=== PATIENT | male | born 1955 | race Caucasian/White ===

== ENCOUNTER → 2016-10-30 | Outpatient (CLI) | payer BC ==
[~2016-10-30] MED LIST: E-Z PAQUE 60% w/v SUSP 355ML BOTTLE As Ordered ONE; E-Z-GAS II EFFERVESCENT PACKET (SODIUM BICARB./CITRIC ACID/SIMETHICONE) As Ordered ONE; E-Z-HD 98% w/w 340GM SUSP BTL As Ordered ONE; NEXI40CA PO; SUCR1TA PO
--- NOTE | 2016-10-30 15:54 | REP ---
UPPER GI, AIR CONTRAST: The procedure was performed under the direct supervision of Dr. Perera. The images were reviewed with Dr. Perera. The gyroscopic instrument mechanic film shows no organomegaly or pathological masses. The intestinal gas pattern is nonspecific. Liquid barium and gas-producing granules were given in the erect position as well as liquid barium in the prone oblique position in order to perform a double-contrast upper GI examination. The oral and pharyngeal stage of deglutition are unremarkable. During esophageal transport there are tertiary waves demonstrated. There is no esophagitis, stricture, mucosal ring, or hiatal hernia. There is to and fro motion in the upright position. Gastroesophageal reflux is not demonstrated on this examination. The stomach hines are normally outlined. The rugal folds are smooth and regular. There is no gastritis, neoplasm, or ulcer disease. The duodenal hines are normally outlined. The mucosal folds are smooth and regular. There is no duodenitis, pancreatitis, peptic ulcer disease, or neoplasm. The visualized portion of the proximal small bowel appears normal in course and caliber. IMPRESSION: There is esophageal dysmotility with to and from motion in the upright position. Otherwise, unremarkable double contrast upper GI examination. 2 minutes and 21 seconds of fluoroscopic time was utilized for this procedure. Reviewed by JEAN Montgomery 10/30/2016 04:55 PEdited and Signed by Tino Perera MD 10/30/2016 05:04 P
== END ==
LOC: M RAD 08:16
PROVIDERS: ATTEND Surgery
DX: R13.10 Dysphagia, unspecified (principal); K21.9 Gastro-esophageal reflux disease without esophagitis

== ENCOUNTER → 2016-11-20 | Outpatient (CLI) | payer BC ==
[~2016-11-20] MED LIST changes: -E-Z PAQUE 60% w/v SUSP 355ML BOTTLE As Ordered ONE; -E-Z-GAS II EFFERVESCENT PACKET (SODIUM BICARB./CITRIC ACID/SIMETHICONE) As Ordered ONE; -E-Z-HD 98% w/w 340GM SUSP BTL As Ordered ONE
--- NOTE | 2016-11-20 11:41 | REP ---
NUCLEAR GASTRIC EMPTYING SCAN: Following the oral administration of 1.05 mCi of technetium 99m sulfur colloid in two scrambled eggs and 2 ounces of water, multiple images of the upper abdomen are performed for 90 minutes. At the end of 90 minutes, 2% which is markedly abnormal. T1/2 is measured to be 2844 minutes, with a normal t1/2 of 90 minutes. IMPRESSION: Markedly delayed gastric emptying. Signed by Glen Hsieh MD 11/20/2016 12:58 P
== END ==
LOC: M RAD 09:07
PROVIDERS: ATTEND Surgery
DX: R13.10 Dysphagia, unspecified (principal)

== ENCOUNTER → 2021-05-27 | Outpatient (CLI) | payer BC, MEDICARE ==
--- NOTE | 2021-05-27 10:28 | REP ---
INDICATION: PAIN IN LT KNEE. COMPARISON: None. TECHNIQUE: Sagittal spin-echo proton density, T2 STIR and T2 FLASH. Coronal spin-echo proton density and fat suppressed proton density. Axial fat suppressed proton density. FINDINGS: The anterior and posterior horns of the medial meniscus are within normal limits. The anterior and posterior horns of the lateral meniscus are within normal limits. The anterior and posterior cruciate ligaments are intact. The quadriceps and patellar tendons are intact. The medial and lateral collateral ligaments are intact. The medial and lateral patellar retinacula are intact. There is mild thinning and irregularity of the articular cartilages in all 3 compartments. There is no joint effusion or Cárdenas's cyst. The marrow signal is within normal limits. IMPRESSION: Mild tricompartmental chondromalacia. There is no evidence of acute internal derangement. Findings as described above. <Electronically signed by [place] > 05/27/21 1024
== END ==
LOC: M RAD 08:38
PROVIDERS: ATTEND Physician Assistant
DX: M25.562 Pain in left knee (principal)

== ENCOUNTER → 2022-08-15 | Outpatient (REF) | payer MEDICARE ==
[2022-08-15 18:10] LABS: C REACTIVE PROTEIN QUANTITATIV < 0.40 MG/DL (<1.0)
[2022-08-15 18:12] LABS: RHEUMATOID FACTOR QUANT < 3.5 IU/ML (<14)
== END ==
LOC: M LABDRAWC 16:44
PROVIDERS: ATTEND Physician Assistant
DX: M19.011 Primary osteoarthritis, right shoulder (principal)

== ENCOUNTER 2023-04-18 08:02 | Day surgery (SDC) | payer MEDICAID, MEDICARE ==
[~2023-04-18] VITALS: Ht 182.9 cm; Wt 107.7 kg
[~2023-04-18 08:02] MED LIST changes: +NS 1,000 ML IV ONE
[2023-04-18] MEDS ORDERED: LIDOCAINE 2% 100MG/5ML SDV (FOR ANES.) As Ordered ONE (09:17)
[2023-04-18] MEDS ORDERED: propofoL 200 MG/20 ML VIAL As Ordered ONE ×4 (09:17→09:47)
[2023-04-18 10:43] VITALS: BP 138/81; TEMP 97.3; O2SAT 98
== END 2023-04-18 10:46 | disposition home or self-care (01) ==
LOC: M OPP 08:02
PROVIDERS: ATTEND Internal Medicine Gastroenterology
DX: Z12.11 Encounter for screening for malignant neoplasm of colon (principal); K63.5 Polyp of colon; K64.0 First degree hemorrhoids; K57.30 Diverticulosis of large intestine without perforation or abscess without bleeding; K29.70 Gastritis, unspecified, without bleeding; K22.89 Other specified disease of esophagus; Z87.891 Personal history of nicotine dependence; Z79.899 Other long term (current) drug therapy; Z88.6 Allergy status to analgesic agent

== ENCOUNTER → 2023-11-12 | Outpatient (CLI) | payer MEDICARE ==
[~2023-11-12] MED LIST changes: -NS 1,000 ML IV ONE
== END ==
LOC: M WUC 13:44
PROVIDERS: ATTEND Nurse Practitioner Family
DX: M19.072 Primary osteoarthritis, left ankle and foot (principal)

== ENCOUNTER → 2024-02-25 | Outpatient (CLI) | payer MEDICARE ==
[2024-02-25 18:11] LABS: HEMATOCRIT 45.1 % (42.0-52.0); HEMOGLOBIN 14.3 g/dl (13.5-17.5); MEAN CORPUSCULAR HGB CONC 31.7 g/dl (32.0-36.5); MEAN CORPUSCULAR VOLUME 94.7 fl (80.0-96.0); PLATELET COUNT, AUTOMATED 201 10^3/uL (150-450); RED BLOOD COUNT 4.76 10^6/uL (4.30-6.10); WHITE BLOOD COUNT 7.7 10^3/uL (4.0-10.0)
== END ==
LOC: M WUC 13:11
PROVIDERS: ATTEND Student in an Organized Health Care Education/Training Program
DX: M79.671 Pain in right foot (principal)

== ENCOUNTER → 2024-06-20 | Outpatient (CLI) | payer MEDICARE | LOC: M WHC 07:48 | PROVIDERS: ATTEND Internal Medicine Gastroenterology | DX: R10.10 Upper abdominal pain, unspecified (principal); K76.0 Fatty (change of) liver, not elsewhere classified ==

== ENCOUNTER → 2024-08-29 | Outpatient (CLI) | payer MEDICARE | LOC: M RAD 15:13 | PROVIDERS: ATTEND Internal Medicine | DX: M47.896 Other spondylosis, lumbar region (principal); M54.50 Low back pain, unspecified ==

== ENCOUNTER 2025-05-29 12:58 | Emergency (ER) | payer MEDICARE ==
[~2025-05-29] VITALS: Ht 182.9 cm; Wt 116.1 kg
[2025-05-29 14:09] LABS: BASO # 0.0 10^3/uL (0.0-0.2); BASO % 0.5 % (0.0-1.0); EOS # 0.5 10^3/uL (0.0-0.5); EOS % 5.9 % (0.0-3.0); LYMPH # 1.8 10^3/uL (1.5-5.0); LYMPH % 21.3 % (24.0-44.0); MONO # 0.7 10^3/uL (0.0-0.8); MONO % 8.4 % (2.0-8.0); NEUTROPHILS # 5.3 10^3/uL (1.5-8.5); NEUTROPHILS % 63.5 % (36.0-66.0); PLATELET COUNT, AUTOMATED 199 10^3/uL (150-450)
[2025-05-29 14:39] LABS: CALCIUM LEVEL 8.6 MG/DL (8.3-10.6); CARBON DIOXIDE LEVEL 28.0 MMOL/L (20-31); CHLORIDE LEVEL 104.0 MMOL/L (98-107); CK-MB VALUE MASS 2.4 NG/ML (<3.6); CPK CREATINE PHOSPHOKINASE 107.0 U/L (46-171); CREATININE FOR GFR 0.97 MG/DL (0.70-1.30); GLOMERULAR FILTRATION RATE 84.0 (>42); MB/CK RELATIVE INDEX 2.24 (< OR =4); POTASSIUM SERUM 4.0 MMOL/L (3.5-5.1); SODIUM LEVEL 140.0 MMOL/L (136-145)
[2025-05-29] MEDS ORDERED: ISOVUE-370 76% 100 ML VIAL As Ordered ONE (16:58)
[2025-05-29] MEDS: NS 500 ML IV ONE (17:16)
[2025-05-29] MEDS: MECLIZINE 25 MG TABLET PO ONE (17:16)
[2025-05-29 18:15] LABS: CK-MB VALUE MASS 1.9 NG/ML (<3.6)
[2025-05-29 18:17] LABS: CPK CREATINE PHOSPHOKINASE 87.0 U/L (46-171); MB/CK RELATIVE INDEX 2.18 (< OR =4)
[2025-05-29 20:30] VITALS: BP 138/78; TEMP 97.9; O2SAT 96
[2025-05-29] MEDS ORDERED: MECL-209 PO (20:48)
== END 2025-05-29 20:47 | disposition home or self-care (01) ==
LOC: M ED 12:58
DX: H81.13 Benign paroxysmal vertigo, bilateral (principal); Z79.899 Other long term (current) drug therapy; Z88.6 Allergy status to analgesic agent
CPT/HCPCS: 70450; 70496; 70498; 70544; 70551; 80048; 82550; 82553; 84443; 84484; 85025; 93005; 93041; 94760; 96360; 96361; 99285; Q9967

== ENCOUNTER → 2025-08-11 | Outpatient (CLI) | payer MEDICARE ==
[~2025-08-11] MED LIST changes: +MECL-209 PO
[2025-08-11] MEDS: LIDOCAINE 1% MDV 20 ML VIAL SC STA (12:39)
[2025-08-11 12:41] VITALS: TEMP 98.1
[2025-08-11 13:10] VITALS: BP 148/82; O2SAT 97
== END ==
LOC: M IRPRO 12:25
PROVIDERS: ATTEND Otolaryngology
DX: D37.030 Neoplasm of uncertain behavior of the parotid salivary glands (principal)